=== PATIENT | female | born 1970 | race Caucasian/White ===

== ENCOUNTER 2017-09-02 15:53 | Emergency (ER) | payer BC, OTHER ==
[~2017-09-02] VITALS: Ht 165.1 cm; Wt 106.0 kg
[~2017-09-02 15:53] MED LIST: FLAG500T PO; LISI10 PO; ONDA4 PO; OXYC-360 PO; SYNT200T OR; Z.0.BCPILL PO; ZOLO100T OR
[2017-09-02 15:54] VITALS: BP 157/89; PULSE 86; RESP 16; TEMP 98.2; O2SAT 100
[2017-09-02] MEDS ORDERED: LEVO200T4 PO (16:14)
[2017-09-02] MEDS ORDERED: VALS1TAB65 PO (16:14)
[2017-09-02] MEDS ORDERED: DOXY100C PO (16:22)
--- NOTE | 2017-09-02 16:22 | PD ---
HPI Chief Complaint: Skin Problem Time Seen by Provider: 16:03 Travel History International Travel<30 days: No Contact w/Intl Traveler<30days: No Traveled to known affect area: No History of Present Illness HPI Patient is a 46 year old female who comes in because she noticed a tick on her arm today. She says she just got back from a camping trip. She did not notice any other ticks. She has no other complaints. She says she was trying to pull it out, but was unable to. Severity is mild. PFSH Past Medical History Asthma: Yes Autoimmune Disease: No Anxiety: Yes Depression: Yes Heart Rhythm Problems: No Cancer: No Cardiovascular Problems: Yes High Cholesterol: Yes Chest Pain: Yes Congestive Heart Failure: No GERD: No Genitourinary: No Headaches: Yes Hypertension: Yes Implanted Vascular Access Dvce: No Musculoskeletal: No Psychiatric: Yes Reproductive: No Migraines: Yes (HISTORY OF ) Thyroid Disease: Yes (HYPOTHYRIOD) Triglycerides - High: Yes Ulcer: No ?: Not Past Surgical History Oral Surgery: Yes (WISDOM) Other Surgery: Yes Social History Alcohol Use: Yes Tobacco Use: No Substance Use: No Allergies-Medications (Allergen,Severity, Reaction): Coded Allergies: amlodipine (Unverified Allergy, Severe, 09/02/17) pseudoephedrine (Unverified Allergy, Severe, 09/02/17) Reported Meds & Prescriptions Reported Meds & Active Scripts Active Review of Systems General / Constitutional: No: Fever, Chills HENT: No: Headaches, Lightheadedness Cardiovascular: No: Chest Pain or Discomfort Respiratory: No: Shortness of Breath Gastrointestinal: No: Nausea, Vomiting Musculoskeletal: No: Myalgias Skin: No Rash, No Change in Pigmentation Physical Exam Narrative GENERAL: Awake and alert, in no acute distress. SKIN: Focused skin assessment warm/dry. Tick present on left lower arm, no surrounding erythema or warmth. HEAD: Atraumatic. Normocephalic. EYES: Pupils equal and round. No scleral icterus. ENT: Mucous membranes pink and moist. CARDIOVASCULAR: Regular rate and rhythm. No murmur appreciated. RESPIRATORY: No accessory muscle use. Clear to auscultation. Breath sounds equal bilaterally. MUSCULOSKELETAL: No obvious deformities. No clubbing. No cyanosis. No edema. NEUROLOGICAL: Awake and alert. No obvious cranial nerve deficits. Motor grossly within normal limits. Normal speech. Data Data Last Documented VS Vital Signs Date Time Temp Pulse Resp B/P (MAP) Pulse Ox O2 Delivery O2 Flow Rate FiO2 09/02/17 15:54 98.2 86 16 157/89 (111) 100 MDM Medical Decision Making Medical Screen Exam Complete: Yes Emergency Medical Condition: Yes Medical Record Reviewed: Yes Differential Diagnosis tick bite vs insect bite vs infection Narrative Course Patient is a 46 year old female who comes in because she noticed a tick on her left arm. Tick was removed with the head intact. Given a prescription for doxycycline. Advised to follow up with a primary doctor. Advised to return to the ED as needed for any worsening symptoms. Diagnosis Primary Impression: Tick bite Qualified Codes: W57.XXXA - Bitten or stung by nonvenomous insect and other nonvenomous arthropods, initial encounter Patient Instructions: General Instructions, Tick Bite (ED) Additional Instructions: Take all of your antibiotic. Follow-up with your doctor. Return to the ED as needed for any worsening symptoms. Scripts Doxycycline Hyclate (Doxycycline Hyclate) 100 Mg Cap 100 MG PO BID for Infection, #20 CAP 0 Refills Prov: Trina Hurt MD 09/02/17 Disposition: 01 DISCHARGE HOME Condition: Stable Trina Hurt MD Sep 02, 2017 16:22
== END 2017-09-02 16:42 | disposition home or self-care (01) ==
LOC: NEPD 15:53
DX: S50.862A Insect bite (nonvenomous) of left forearm, initial encounter (principal); W57.XXXA Bitten or stung by nonvenomous insect and other nonvenomous arthropods, initial encounter; J45.909 Unspecified asthma, uncomplicated; F41.9 Anxiety disorder, unspecified; F32.9 Major depressive disorder, single episode, unspecified; E78.00 Pure hypercholesterolemia, unspecified; I10 Essential (primary) hypertension; E03.9 Hypothyroidism, unspecified
CPT/HCPCS: 99282

== ENCOUNTER 2017-09-02 19:07 | Emergency (ER) | payer BC ==
[~2017-09-02] VITALS: Ht 165.1 cm; Wt 105.0 kg
[~2017-09-02 19:07] MED LIST changes: +DOXY100C PO; +LEVO200T4 PO; +VALS1TAB65 PO
[2017-09-02 19:10] VITALS: BP 149/71; PULSE 82; RESP 16; TEMP 98.4; O2SAT 98
--- NOTE | 2017-09-02 20:42 | PD ---
HPI Chief Complaint: Bite or Sting Time Seen by Provider: 20:29 Travel History International Travel<30 days: No Contact w/Intl Traveler<30days: No Traveled to known affect area: No History of Present Illness HPI Patient is a 46-year-old female presenting to the emergency department for evaluation of a tick on her body. Patient went camping, returned home this morning and noticed a tick on her forearm which she came to the emergency department for earlier, she got home and noticed another tick on the inner upper right thigh near the groin. She has no other complaints at this time. She denies any redness, swelling, itching. PFSH Past Medical History Asthma: Yes Autoimmune Disease: No Anxiety: Yes Depression: Yes Heart Rhythm Problems: No Cancer: No Cardiovascular Problems: Yes High Cholesterol: Yes Chest Pain: Yes Congestive Heart Failure: No GERD: No Genitourinary: No Headaches: Yes Hypertension: Yes Implanted Vascular Access Dvce: No Musculoskeletal: No Psychiatric: Yes Reproductive: No Migraines: Yes (HISTORY OF ) Thyroid Disease: Yes (HYPOTHYRIOD) Triglycerides - High: Yes Ulcer: No ?: Not Past Surgical History Oral Surgery: Yes (WISDOM) Other Surgery: Yes Social History Alcohol Use: Yes Tobacco Use: No Substance Use: No Allergies-Medications (Allergen,Severity, Reaction): Coded Allergies: amlodipine (Unverified Allergy, Severe, 09/02/17) pseudoephedrine (Unverified Allergy, Severe, 09/02/17) KODY Inhibitors (Verified Allergy, Unknown, 09/02/17) milk (Verified Allergy, Unknown, 09/02/17) Reported Meds & Prescriptions Reported Meds & Active Scripts Active Doxycycline Hyclate 100 Mg Cap 100 Mg PO BID Reported Valsartan 160 Mg Tab 160 Mg PO DAILY Levothyroxine (Levothyroxine Sodium) 200 Mcg Tab 200 Mcg PO DAILY Review of Systems Except as stated in HPI: all other systems reviewed are Neg Skin: Positive Other Physical Exam Narrative GENERAL: Obese, well-developed, alert female. Presenting in no acute distress. SKIN: Warm and dry. Small brown tick noted to right inner upper thigh. No erythema or rash noted. HEAD: Normocephalic. EYES: No scleral icterus. No injection or drainage. NECK: Supple, trachea midline. No JVD or lymphadenopathy. CARDIOVASCULAR: Regular rate and rhythm without murmurs, gallops, or rubs. RESPIRATORY: Breath sounds equal bilaterally. No accessory muscle use. GASTROINTESTINAL: Abdomen soft, non-tender, nondistended. MUSCULOSKELETAL: No cyanosis, or edema. BACK: Nontender without obvious deformity. No CVA tenderness. Data Data Last Documented VS Vital Signs Date Time Temp Pulse Resp B/P (MAP) Pulse Ox O2 Delivery O2 Flow Rate FiO2 09/02/17 19:10 98.4 82 16 149/71 (97) 98 Room Air MDM Medical Decision Making Medical Screen Exam Complete: Yes Emergency Medical Condition: Yes Interpretation(s) Vital Signs Date Time Temp Pulse Resp B/P (MAP) Pulse Ox O2 Delivery O2 Flow Rate FiO2 09/02/17 19:10 98.4 82 16 149/71 (97) 98 Room Air Differential Diagnosis Erythema migrans versus tick bite versus cellulitis versus other Narrative Course Patient presented for evaluation of a another tick found on her body. Tick was easily removed with tweezers and given to patient per her request. Patient was previously prescribed doxycycline earlier today. She will continue that as previously prescribed. She is to follow-up with her primary doctor. She is encouraged to return to emergency department for any new or worsening symptoms. Patient's body was checked thoroughly for any further ticks. Patient stable for discharge. Diagnosis Primary Impression: Tick bite Qualified Codes: W57.XXXA - Bitten or stung by nonvenomous insect and other nonvenomous arthropods, initial encounter Referrals: Primary Care Physician 3 days Patient Instructions: General Instructions, Tick Bite (ED) Additional Instructions: Follow-up with your primary doctor Continue medications as previously prescribed Return to emergency department for any new or worsening symptoms Med/Other Pt SpecificInfo: No Change to Meds Disposition: 01 DISCHARGE HOME Condition: Stable Taye,Lainey CAMACHO Sep 02, 2017 20:42
== END 2017-09-02 20:47 | disposition home or self-care (01) ==
LOC: NEPD 19:07
DX: S70.361A Insect bite (nonvenomous), right thigh, initial encounter (principal); W57.XXXA Bitten or stung by nonvenomous insect and other nonvenomous arthropods, initial encounter; J45.909 Unspecified asthma, uncomplicated; F41.9 Anxiety disorder, unspecified; F32.9 Major depressive disorder, single episode, unspecified; E78.00 Pure hypercholesterolemia, unspecified; I10 Essential (primary) hypertension; E03.9 Hypothyroidism, unspecified
CPT/HCPCS: 99281